=== PATIENT | male | born 1935 ===

== ENCOUNTER 2017-09-02 07:24 | Emergency (ER) | payer OTHER ==
[2017-09-02] MEDS ORDERED: COCAINE HCL 4% 4 ML BTL TP ONE (07:37)
[2017-09-02] MEDS ORDERED: OXYMETAZOLINE 30 ML NASAL SPRAY ONE (07:37)
[2017-09-02 07:52] VITALS: RESP 18; TEMP 97.5
[2017-09-02] MEDS ORDERED: SILVER NITRATE APPLICATOR 1 APPL TP ONE (07:56)
[2017-09-02] MEDS ORDERED: ACETAMINOPHEN 500 MG TAB PO ONE (08:29)
[2017-09-02] MEDS ORDERED: CEPHALEXIN 500 MG CAP PO ONE (08:29)
--- NOTE | 2017-09-02 08:34 | EDPHY ---
H & P Stated Complaint: RIGHT SIDED NOSE BLEED STARTED AT 530AM TODAY Time Seen by Provider: 09/02/17 07:55 HPI/ROS: CHIEF COMPLAINT: Nose bleed HISTORY OF PRESENT ILLNESS: REVIEW OF SYSTEMS: This is a healthy 82-year-old male who presents with nosebleed. He woke this morning with bloody showing from his right nostril. This began around 5:30 in the morning. He does sneeze forcefully. He is not aware of any nasal trauma. He has not had an upper respiratory infection. He has had previous nose bleeds, requiring packing and cauterization. He has been seen at [facility] for this. He has no history of hypertension. He does not take anticoagulants. A ten point review of systems was performed and is negative with the exception of the items mentioned in the HPI. Past medical history: BPH Social history: He is . No tobacco use. He is originally from [place]. General Appearance: Alert. Vital signs reviewed. Blood pressure 178/101. Eyes: Pupils equal and round, no conjunctival injection, no discharge. Anicteric. ENT, Mouth: Small amount of blood posterior oropharynx. Right naris packed with Afrin soaked cotton ball. On removal of cotton ball, clot also dislodged. Punctate areas of bleeding right medial nasal septum. Neck: No lymphadenopathy, supple. Respiratory: Lungs are clear to auscultation; no wheezes, rales, or rhonchi. Cardiovascular: Regular rate and rhythm; no murmur, rub, or gallop. Skin: Warm and dry, no rashes on exposed skin, normal color. Neurological: Alert and oriented. Moving all four extremities easily and equally. Psychiatric: Normal affect. - Medical/Surgical History Hx Asthma: No Hx Chronic Respiratory Disease: No Hx Diabetes: No Hx Cardiac Disease: No Hx Renal Disease: No Hx Cirrhosis: No Hx Alcoholism: No Hx HIV/AIDS: No Hx Splenectomy or Spleen Trauma: No Other PMH: BPH, HTN, GLAUCOMA - Social History Smoking Status: Never smoked Constitutional: Initial Vital Signs Temperature (C) 36.4 C 09/02/17 07:35 Heart Rate 69 09/02/17 07:35 Respiratory Rate 18 09/02/17 07:35 Blood Pressure 178/101 H 09/02/17 07:35 O2 Sat (%) 95 09/02/17 07:35 O2 Delivery Mode Room Air Allergies/Adverse Reactions: No Known Allergies Allergy (Unverified 09/02/17 08:29) Home Medications: Medication Instructions Recorded Latanoprost 0.005% [Xalatan 0.005% 1 drops EACHEYE HS 06/08/16 (*)] Latanoprost 0.005% [Xalatan 0.005% 1 drops EACHEYE HS #0 opht.btl 06/09/16 (*)] Cephalexin [Keflex] 500 mg PO BID #5 cap 09/02/17 Finasteride 09/02/17 Medical Decision Making Procedures: Procedure: Epistaxis control. After verbal consent was obtained, the patient was anesthetized with topical cocaine on a cotton ball. The anterior epistaxis was identified. The patient was treated with anterior rhino stat packing . Following the procedure the patient was re-examined and the bleeding was well controlled. The patient tolerated the procedure well. The procedure was performed by myself. ED Course/Re-evaluation: Anterior nose bleed, right naris. After right nostril was cleared, patient was examined with head light and nasal speculum. Multiple punctate sites of bleeding were identified. 3 of these areas were cauterized with stick pencil but bleeding persisted, as there were multiple sites. See procedure note. Patient was hypertensive on arrival but had improved blood pressure at discharge. He is aware that his blood pressure was high and will check it at home and in his primary care doctor's office. Differential Diagnosis: Considered a differential diagnosis that includes but is not limited to nasal trauma, hypertension, anticoagulant use, alcohol abuse, in her to bleeding problem, and infection. - Data Points Medications Given: Discontinued Medications Acetaminophen (Tylenol) 500 mg PO EDNOW ONE Stop: 09/02/17 08:30 Last Admin: 09/02/17 08:35 Dose: 500 mg Cephalexin HCl (Keflex) 500 mg PO EDNOW ONE PRN Reason: Protocol Stop: 09/02/17 08:30 Last Admin: 09/02/17 08:35 Dose: 500 mg Departure - Departure Disposition: Home, Routine, Self-Care Clinical Impression: Anterior epistaxis Condition: Good Instructions: Nosebleed (ED) Additional Instructions: Leave the packing in place for 3 days. I recommend that you call [facility] and set up an appointment for removal of packing. I am providing Dr. Rdz's phone number--anyone in the office can help you with this problem. While the packing is in place you should be taking antibiotics. I am prescribing Keflex 500 mg twice daily. You received your 1st dose here today. If you have headache or nasal pain I recommend Tylenol, 500 mg every 4 hours as needed. You should not take more than 3000 mg of Tylenol in a 24 hour time period. You received 500 mg of Tylenol in the emergency department. Referrals: Sujata Fuller NP [Primary Care Provider] - As per Instructions Reagan Rdz MD [Medical Doctor] - As per Instructions Prescriptions: Cephalexin [Keflex] 500 mg PO BID #5 cap
[2017-09-02 08:42] VITALS: BP 131/77; PULSE 78; O2SAT 97
== END 2017-09-02 08:51 | disposition home or self-care (01) ==
LOC: CED 07:24
PROC: 2Y41X5Z Packing of Nasal Region using Packing Material (ICD-10-PCS; principal; 2017-09-02)
DX: R04.0 Epistaxis (principal); I10 Essential (primary) hypertension

== ENCOUNTER 2017-09-02 12:14 | Emergency (ER) | payer OTHER ==
[2017-09-02 12:29] VITALS: BP 145/89; PULSE 78; RESP 18; O2SAT 94
--- NOTE | 2017-09-02 13:51 | EDPHY ---
H & P Stated Complaint: NOSE BLEED Time Seen by Provider: 09/02/17 12:27 HPI/ROS: CHIEF COMPLAINT: Nose bleed HISTORY OF PRESENT ILLNESS: Mr. Dorman an 82-year-old male who was treated a few hours ago in this emergency department for epistaxis. At that time of 4.5 cm rhinostat was placed in the right naris. He returns out of concern that he has bled through the nasal packing. He is having to daub his nose because of continued pink drainage out of the right nostril. He is not aware of any blood in the back of his throat. The nasal clamp will not stay in place because of mild deformity caused by the packing. REVIEW OF SYSTEMS: Not performed, as this patient had been seen a few hours ago and full review of systems had been done at that time. Past medical history: BPH General Appearance: Alert. Vital signs reviewed. Blood pressure 145/89. A limited exam was performed. HEENT: Rhinostat in place in right naris. Occasional drip from right nostril, rhinostat red in color. Rhinostate balloon not fully inflated. No blood in posterior oropharynx. - Personal History Current Tetanus Diphtheria and Acellular Pertussis (TDAP): No - Medical/Surgical History Hx Asthma: No Hx Chronic Respiratory Disease: No Hx Diabetes: No Hx Cardiac Disease: No Hx Renal Disease: No Hx Cirrhosis: No Hx Alcoholism: No Hx HIV/AIDS: No Hx Splenectomy or Spleen Trauma: No Other PMH: BPH, HTN, GLAUCOMA - Social History Smoking Status: Never smoked Constitutional: Initial Vital Signs Heart Rate 78 09/02/17 12:27 Respiratory Rate 18 09/02/17 12:27 Blood Pressure 145/89 H 09/02/17 12:27 O2 Sat (%) 94 09/02/17 12:27 O2 Delivery Mode Room Air Allergies/Adverse Reactions: No Known Allergies Allergy (Unverified 09/02/17 08:29) Home Medications: Medication Instructions Recorded Latanoprost 0.005% [Xalatan 0.005% 1 drops EACHEYE HS 06/08/16 (*)] Latanoprost 0.005% [Xalatan 0.005% 1 drops EACHEYE HS #0 opht.btl 06/09/16 (*)] Cephalexin [Keflex] 500 mg PO BID #5 cap 09/02/17 Finasteride 09/02/17 Medical Decision Making ED Course/Re-evaluation: Patient has re-presented, worried that he has blood through the nasal packing. Discharge instructions indicate that he should return if this occurs, and he has done so. I reinflated the balloon on the rhino stat. This deforms his right nose enough so that the nasal clamp will not stay in place. I then removed the rhino stat. The right naris was re-examined with magnification and head lamp. There is no active bleeding. The sites that were previously cauterized are not bleeding. He was observed for about half an hour with no return of epistaxis. He is discharged without packing in place. I told the patient is with that he need not take the antibiotics that were prescribed earlier. This was a limited encounter, as I had seen the patient a few hours previously. Departure - Departure Disposition: Home, Routine, Self-Care Clinical Impression: Anterior epistaxis Condition: Good Instructions: Nosebleed (ED) Referrals: Sujata Fuller NP [Primary Care Provider] - As per Instructions Reagan Rdz MD [Medical Doctor] - As per Instructions
== END 2017-09-02 14:06 | disposition home or self-care (01) ==
LOC: CED 12:14
DX: R04.0 Epistaxis (principal); I10 Essential (primary) hypertension

== ENCOUNTER → 2018-04-23 | Outpatient (CLI) | payer OTHER | LOC: BHFA 10:00 | PROVIDERS: ATTEND Internal Medicine Cardiovascular Disease | DX: R94.31 Abnormal electrocardiogram [ECG] [EKG] (principal) ==

== ENCOUNTER 2018-09-14 21:00 | Emergency (ER) | payer OTHER, MEDICARE ==
--- NOTE | 2018-09-14 21:14 | EDPHY ---
H & P Time Seen by Provider: 09/14/18 21:08 HPI/ROS: CHIEF COMPLAINT: Cough HISTORY OF PRESENT ILLNESS: This is an 83-year-old gentleman whose had a cough for now 4 days. Of note is that he arrived from a 1 month vacation to [place] on September 01. When seen by his PCP on a regular scheduled appointment on September 03 he received the seasonal influenza. No one else is sick. No known exposure. He noted that during the month while initially he did not have PEREZ or shortness of breath. He has also denies any calf pain or unilateral leg swelling. The cough itself has been dry. On occasion it is coughing so hard that he gets developed a substernal discomfort that is transient in nature and related only to the coughing. He has not heard himself wheeze REVIEW OF SYSTEMS: Constitutional: No fever, no chills. Eyes: No discharge ENT: No sore throat. Cardiovascular: See above Respiratory: See above Gastrointestinal: No nausea vomiting or diarrhea. No abdominal pain. Genitourinary: No hematuria or frequency. Musculoskeletal: No back pain. Skin: No rashes. Neurological: No headache. A 10 system review of systems was performed and is negative except for the noted findings in the HPI. Source: Patient Exam Limitations: No limitations - Medical/Surgical History Hx Asthma: No Hx Chronic Respiratory Disease: No Hx Diabetes: No Hx Cardiac Disease: No Hx Renal Disease: No Hx Cirrhosis: No Hx Alcoholism: No Hx HIV/AIDS: No Hx Splenectomy or Spleen Trauma: No Other PMH: BPH, HTN, GLAUCOMA - Social History Smoking Status: Never smoked Alcohol Use: Occasionally Drug Use: None - Physical Exam Exam: General Appearance: Alert, no distress. Afebrile, with temperature this time is 37.4 PO on my exam. Normal phonation. No respiratory distress. He is able to speak in full sentences Eyes: Pupils equal and round no pallor or injection. No icterus ENT, Mouth: Mucous membranes moist Pharynx without erythema or exudate. TM Clear. Neck: No adenopathy. Supple. No JVD. Trachea in midline. Respiratory: There are no retractions, lungs are clear to auscultation, there is no dullness. Chest wall: Nontender to palpation. No crepitus. Cardiovascular: Regular rate and rhythm. Abdomen: Soft and nontender, no masses, bowel sounds normal. . Neurological: Ox3. No motor weakness. Sensation intact. Gait nl. Skin: Warm and dry, no rashes. Musculoskeletal: No joint swelling. Extremities: No edema. Homans sign negative. No cords. Psychiatric: Normal affect. Patient is oriented X 3. There is no agitation Constitutional: Initial Vital Signs Temperature (C) 37.1 C 09/14/18 21:07 Heart Rate 84 09/14/18 21:07 Respiratory Rate 18 09/14/18 21:07 Blood Pressure 127/69 H 09/14/18 21:07 O2 Sat (%) 93 09/14/18 21:07 O2 Delivery Mode Room Air Allergies/Adverse Reactions: No Known Allergies Allergy (Verified 09/14/18 21:05) Home Medications: Medication Instructions Recorded Latanoprost 0.005% [Xalatan 0.005% 1 drops EACHEYE HS #0 opht.btl 06/09/16 (*)] Finasteride 09/02/17 Benzonatate 200 mg PO TID PRN #28 capsule 09/14/18 Doxycycline Monohydrate [Avidoxy] 100 mg PO BID #14 tablet 09/14/18 Ergocalciferol (Vitamin D2) 09/14/18 [Vitamin D2] Losartan Potassium 09/14/18 Medical Decision Making - Diagnostics EKG Interpretation: My interpretation EKG. Contemporaneously, See final reading in [place]. This is 1st degree block with LAHB. No ST changes. No prior MD. No ischemic changes. Imaging Results: Chest x-ray: Two view chest. Interpreted by [radiologist] . Films [reviewed ] by me on the PACS system. Normal mediastinum. Bronchitic changes. No effusions. Normal chest, except for bronchitic changes. ED Course/Re-evaluation: Initial evaluation include the following: Normal white count Normal renal function Negative lactic acid Chest [id number] as per reviewed by radiologist, films reviewed by me. UBI-[id number] block with left anterior fascicular block with no signs of ischemia as interpreted by me-see above. Initial management include the following: Sj Wong p.o. A DuoNeb. With the above treatment he felt much better. He had better aeration and he felt the cough is less. I met with family. He had run out of the standard dose dex before family was using. Thus will transition to Tessalon Christen. Given his age will go ahead with a course of doxycycline. I expect he is to have a no real substantial improvement for at least 3-5 days. However she get worse such as fever or feeling weak, he should return. Differential Diagnosis: Differential diagnosis includes but is not limited to the following: ACS, myocardial infarction, pneumothorax, pleurisy, pulmonary embolus, CHF, Pneumonia, bronchospasm, Asthma, anxiety, muscle strain. Differential Includes but is not limited to: Pneumonia, bronchitis, acute asthma, asthmatic bronchitis, Influenza, pharyngitis. - Data Points Medications Given: Discontinued Medications Albuterol Sulfate (Proventil Inh Prepack) 1 mdi TAKEHOME EDNOW ONE Stop: 09/14/18 22:45 Last Admin: 09/14/18 22:58 Dose: 1 mdi Albuterol/Ipratropium (Duoneb) 3 ml IH EDNOW ONE Stop: 09/14/18 21:25 Last Admin: 09/14/18 21:30 Dose: 3 ml Benzonatate (Tessalon Pearles) 200 mg PO EDNOW ONE Stop: 09/14/18 21:25 Last Admin: 09/14/18 21:30 Dose: 200 mg Benzonatate (Tessalon Pearles) 200 mg PO EDNOW ONE Stop: 09/14/18 22:44 Last Admin: 09/14/18 22:56 Dose: 200 mg Doxycycline Hyclate (Doxycycline Hyclate) 100 mg PO EDNOW ONE PRN Reason: Protocol Stop: 09/14/18 22:44 Last Admin: 09/14/18 23:17 Dose: 100 mg Point of Care Test Results: CBC CBC Collection Date 09/14/18 CBC Collection Time 21:30 WBC 9.4 RBC 4.81 HGB 15.6 HCT 44.4 PLT 180 Neut # 7.6 Neut 80.4 LYMPH # 1.5 LYMPH 16.3 Other WBC # 0.3 Other WBC 3.3 MCV 92.3 Chemistry 09/14/18 21:38 POC Sodium 141 mEq/L mEq/L (135-145) POC Potassium 3.4 mEq/L mEq/L (3.3-5.0) POC Chloride 102.0 mEq/L mEq/L (97-110) POC Total CO2 24 mEq/L mEq/L (22-31) POC BUN 13 mg/dL mg/dL (7-23) POC Creatinine 0.7 mg/dL mg/dL (0.7-1.3) POC Glucose 158 mg/dL H mg/dL (70-100) POC Calcium 9.2 mg/dL mg/dL (8.5-10.4) Blood Gas/Lactic Acid-Venous 09/14/18 21:41 POC Lactic Acid Aime 1.7 mmol/L mmol/L (0.7-2.1) Influenza PCR Flu Nasal Swab Collection Date 09/14/18 Flu Nasal Swab Collection Time 21:42 Influenza A Result Not Detected Influenza B Result Not Detected Departure - Departure Disposition: Home, Routine, Self-Care Clinical Impression: Asthmatic bronchitis with exacerbation Condition: Good Instructions: Benzonatate (By mouth), Doxycycline (By mouth), Albuterol (By breathing), Acute Bronchitis (ED), How to Use a Nebulizer (ED), Reactive Airways Disease (ED) Additional Instructions: For the cough either use: Delsym for tsp twice daily Or Benzonatate prescription - 2 tablets 3 times daily You will also be on the additional medications: Doxycycline for 7 days Proventil 4 times a day, for 14 days Is important the stay home and keep you terms to herself. Thereby, do not go out grocery shopping, nor to [employer]. This is for 2 weeks Referrals: Sujata Fuller, [employer] [Primary Care Provider] - 5-7 days, if not improved Prescriptions: Benzonatate 200 mg PO TID PRN #28 capsule PRN Reason: Cough Doxycycline Monohydrate [Avidoxy] 100 mg PO BID #14 tablet
[2018-09-14] MEDS ORDERED: IPRATROPIUM/ALBUTEROL 3 ML DEYVIAL IH ONE (21:24)
[2018-09-14] MEDS ORDERED: BENZONATATE 100 MG CAP PO ONE ×3 (21:24→22:43)
[2018-09-14 22:33] VITALS: BP 111/69
[2018-09-14] MEDS ORDERED: DOXYCYCLINE HYCLATE 100 MG CAP/TAB PO ONE (22:43)
[2018-09-14] MEDS ORDERED: ALBUTEROL INH PREPACK MDI TAKEHOME ONE (22:44)
--- NOTE | 2018-09-15 07:32 | CPEKG ---
Test Reason : OPEN Blood Pressure : / mmHG Vent. Rate : 085 BPM Atrial Rate : 084 BPM P-R Int : 245 ms QRS Dur : 107 ms QT Int : 381 ms P-R-T Axes : -01 -78 021 degrees QTc Int : 453 ms Sinus rhythm Prolonged NH interval Left anterior fascicular block Consider right ventricular hypertrophy Confirmed by Isreal Arteaga ([id number]) on 09/15/2018 7:31:59 AM Referred By: Confirmed By:Isreal Arteaga
== END 2018-09-14 22:30 | disposition home or self-care (01) ==
LOC: CED 21:00
DX: J45.909 Unspecified asthma, uncomplicated (principal)
CPT/HCPCS: 71046-PO; 80048-PO; 83605-PO